=== PATIENT | female | born 1955 | race Caucasian/White ===

== ENCOUNTER 2021-09-08 14:38 | Emergency (ER) | payer BC ==
[~2021-09-08] VITALS: Ht 160 cm; Wt 90.7 kg
--- NOTE | 2021-09-08 14:55 | NUR ---
PT IS IN ROOM # 2B. DR HANKS EVALUATED THE PT. PT IS UNDER DIRECT SUPERVISION OF NGA CHRISTIANSON.
[2021-09-08 15:08] LABS: HEMATOCRIT 37.3 % (31.2-41.9); MEAN CORPUSCULAR HEMOGLOBIN 30.4 uug (24.7-32.8); MEAN CORPUSCULAR VOLUME 91.6 fL (75.5-95.3); PLATELET COUNT (AUTO) 366 K/uL (179-408)
[2021-09-08] MEDS ORDERED: OMEPRAZOLE (15:13)
[2021-09-08] MEDS ORDERED: PLAVIX (15:13)
--- NOTE | 2021-09-08 15:13 | NUR ---
MEDICATION INFORMATION FROM PAR[employer].
[2021-09-08 15:16] LABS: CARBON DIOXIDE 26 mmol/L (21-32); CHLORIDE 106 mmol/L (98-107); CREATININE 0.8 mg/dL (0.6-1.3); GLUCOSE 101 mg/dL (74-106); POTASSIUM 4.3 mmol/L (3.5-5.1); UREA NITROGEN, BLOOD 22 mg/dL (7-18)
[2021-09-08 15:21] LABS: ALANINE AMINOTRANSFERASE 58 U/L (14-59); ALKALINE PHOSPHATASE 124 U/L (50-136); ASPARTATE AMINOTRANSFERASE 21 U/L (15-37); BILIRUBIN,DIRECT 0.1 mg/dL (0.0-0.2); BILIRUBIN,TOTAL 0.3 mg/dL (0.2-1.0); TOTAL PROTEIN, SERUM 7.8 g/dL (6.4-8.2)
[2021-09-08 15:32] LABS: ACETAMINOPHEN < 2.0 ug/mL (10-30); ETHANOL < 3 MG/DL (0-0)
--- NOTE | 2021-09-08 15:37 | NUR ---
PT WAS PLACED ON HOLD BY [employer] OFFICER DANGER TO HERSELF, SUICIDAL IDIATION.
[2021-09-08 15:56] LABS: *AMPHETAMINE, URINE NEGATIVE (NEGATIVE); *CANNABINOID, URINE NEGATIVE (NEGATIVE); *COCCAINE, URINE NEGATIVE (NEGATIVE); *OPIATE, URINE NEGATIVE (NEGATIVE); *PHENCYCLIDINE SCREEN,URINE NEGATIVE (NEGATIVE)
[2021-09-08] MEDS ORDERED: LORAZEPAM 2 MG/1 ML VIAL IM ONE (17:30)
[2021-09-08] MEDS ORDERED: LORAZEPAM 2 MG/1 ML VIAL ONE (17:36)
--- NOTE | 2021-09-08 18:32 | NUR ---
CRISIS RECREATION PROGRAM SPECIALIST ERIC WAS CALLED TO EVALUATE THE PT . GENARO IS 30 MINUTES.
--- NOTE | 2021-09-08 19:07 | NUR ---
RECEIVED REPORT FROM JACKIE POLO. PT NOTED TO BE IN BED RESTING COMFORTABLY, NO SOB OR LABORED BREATHING. DENIES SI AT THIS TIME. 1:1 SITTER AT BEDSIDE. PROVIDED POT WITH CALM, QUIET AND SAFE ENVIRONMENT.
[2021-09-08] MEDS ORDERED: HALOPERIDOL LACTATE 5 MG/1 ML VIAL ONE (20:02)
[2021-09-08 20:04] LABS: *BILIRUBIN,URIN NEGATIVE (NEGATIVE); *BLOOD, URINE NEGATIVE (NEGATIVE); *CLARITY,URINE TURBID (CLEAR); *COLOR,URINE YELLOW (YELLOW); *KETONES,URINE NEGATIVE (NEGATIVE); *UROBILINOGEN,URINE 0.2 E.U./dl (NORMAL); LEUKOCYTE ESTERASE ,URINE 3+ (NEGATIVE); NITRITE, URINE NEGATIVE (NEGATIVE); PH,URINE >=9.0 (5.0-8.0); UGLUCOSE NEGATIVE (NEGATIVE)
[2021-09-08] MEDS ORDERED: HALOPERIDOL LACTATE 5 MG/1 ML VIAL IM ONE (20:15)
[2021-09-08] MEDS ORDERED: diphenhydrAMINE 50 MG/1 ML VIAL ONE (20:38)
[2021-09-08] MEDS ORDERED: diphenhydrAMINE 50 MG/1 ML VIAL IM ONE (20:45)
--- NOTE | 2021-09-08 21:54 | NUR ---
RECEIVED CALL FROM GOMEZ FROM [facility] FOR UPDATE THAT HE HAS FAXED OVER PT'S FACE SHEET AND CLINICAL SUMMARY TO[facility] 1)[facility] 2)[facility] 3)[facility] 4)[facility] 5)[facility] 6)[facility] WAITING GRINDER SET UP OPERATOR [employer] BACK FROM [facility].
[2021-09-08 22:38] LABS: BACTERIA,URINE MANY /HPF (NONE SEEN); RBC,URINE 0-3 /HPF (0-3); SQUAMOUS EPITHELIAL CELL,UR FEW /HPF (NONE SEEN); WBC,URINE 20-50 /HPF (0-3)
[2021-09-08 22:39] LABS: TRIPLE PHOSPHATE CRYSTAL,UR MODERATE /HPF (NONE SEEN); URINE AMORPHOUS PHOSPHATES MANY /HPF
[2021-09-09] MEDS ORDERED: OLANZAPINE 10 MG VIAL IM ONE ×2 (00:45→00:47)
--- NOTE | 2021-09-09 01:28 | NUR ---
PT RESTING COMFORTABLY IN BED EYES CLOSED, BREATHING EVEN AND UNLABORED.
[2021-09-09] MEDS ORDERED: NITROFURANTOIN/NITROFURAN MAC 100 MG CAPSULE PO ONE (02:03)
--- NOTE | 2021-09-09 03:07 | NUR ---
RECEIVED CALL BACK FROM JONATHAN, "THE HOSPITALS THAT WE HAVE FAXED OVER THE PT'S INFO HAS NO BEDS AVAILABLE, WE WILL CONTINUE TO SEARCH FOR HOSPITALS".
--- NOTE | 2021-09-09 06:46 | NUR ---
REPORT GIVEN TO MORNING SHIFT. PT NOTED TO BE IN BED, EYES CLOSED, BREATHING EVEN AND UNLABORED. VSS.
--- NOTE | 2021-09-09 13:25 | NUR ---
Called pt's home health nurses Ashlee ([phone]) per Nasrin Cheng request and notified her that pt will be getting discharged home.
[2021-09-09] MEDS ORDERED: LORAZEPAM 2 MG/1 ML VIAL IM ONE (13:30)
--- NOTE | 2021-09-09 14:58 | NUR ---
CRISIS BACK CLOSER STEF EVALUATED THE PT. PT STATES SHE IS NOT SUICIDAL ANY MORE. SHE REMOVED PT FROM 51/50 HOLD. SHE COMMUNICATE WITH PT's AND LUMBER PLANER JESUSITA TO ASSIST PT WITH HOME CARE. PT WAS D/C'd TO HOME VIA S AMBULANCE. D/C ISTRUCTIONS GIVEN TO THE PT AND HER BY STEF EDOUARD.
[2021-09-09 15:05] VITALS: BP 127/69
== END 2021-09-09 15:07 | disposition home or self-care (01) ==
LOC: ER 14:38
DX: F32.A Depression, unspecified (principal); R45.851 Suicidal ideations; I89.0 Lymphedema, not elsewhere classified; I69.30 Unspecified sequelae of cerebral infarction; Z88.2 Allergy status to sulfonamides; Z79.02 Long term (current) use of antithrombotics/antiplatelets; Z20.822 Contact with and (suspected) exposure to COVID-19; Z82.49 Family history of ischemic heart disease and other diseases of the circulatory system
CPT/HCPCS: 36415; 80048; 80076; 80299; 80307; 80320; 81001; 85025; 87086; 87426; 96372 ×2; 99285; J1200; J1630; J2060; 87077; A4663; G0480; J2358